=== PATIENT | female | born 1975 | race Caucasian/White ===

== ENCOUNTER 2020-02-11 17:47 | Emergency (ER) | payer OTHER, SELFPAY ==
[2020-02-11 18:07] VITALS: BP 165/82; PULSE 70; RESP 20; TEMP 36.8; O2SAT 97; BMI 25.0
--- NOTE | 2020-02-11 18:33 | HMH.EDUTC ---
[facility] Disposition Clinical Impression: Encounter for medication refill Disposition: Home, Self-Care Condition on Discharge: Good Instructions: Venlafaxine Additional Instructions: Make sure to call and make appointment with Estela Ngo [facility] You was given list of excepting Doctors call and try to get in for further treatment and medication refills Return if needed Straight to ER if any life threatening symptoms Prescriptions: Venlafaxine HCl [Venlafaxine HCl ER] 150 mg PO DAILY 30 Days #30 cap.er.24h Transmission Status: Pending to [id number] Referrals: Provider,Referral, MD [Primary Care Provider] - As needed Time of Disposition: 18:45 Medical Decision Making - Johnathon Inquiry Pt receiving controlled substance: No Johnathon was queried for this patient: No Vital Signs: 02/11/20 18:07 Temperature 98.2 F Temperature Source Oral Pulse Rate [Right Brachial] 70 Respiratory Rate 20 Blood Pressure [Right Arm] 165/82 H Blood Pressure Mean [Right Arm] 109 Blood Pressure Source [Right Arm] Automatic Cuff Blood Pressure Position [Right Arm] Sitting 02 Sat by Pulse Oximetry 97 Oxygen Delivery Method Room Air [facility] HPI - General Stated complaint: needs a refill on Rx Time Seen by Provider: 02/11/20 18:33 Mode of Arrival: Ambulatory Source of Information: Patient Limitations: No Limitations Description of Symptoms (Recalled from Triage Doc. by RN): PATIENT IS REQUESTING A REFILL ON HER EFFEXOR UNTIL SHE CAN ESTABLISH A PCP HEENT Symptoms (Recalled from RN notes): No Resp Symptoms (Recalled from RN notes): No Skin Symptoms (Recalled from RN notes): No MS Symptoms (Recalled from RN notes): No Functional Status (Recalled from RN notes): WNL - History of Present Illness Provider Complaint: Patient states that she is on Effexor States that she just ran out of her medication the first of February States that the Doctor she was seeing moved offices and no longer in [address] and now she cant see them anymore States that she came in today to see if she could get a refill on her Effexor until she can get in to see someone and establish a new PCP - Related Data Home Medications Medication Instructions Recorded Confirmed Buprenorphine HCl/Naloxone HCl 1 each SL BID 02/11/20 02/11/20 [Suboxone 8 mg-2 mg Sl Film] Buspirone HCl [Buspirone 15 mg 15 mg PO TID 02/11/20 02/11/20 Tablets] Venlafaxine HCl [Venlafaxine HCl 150 mg PO DAILY 02/11/20 02/11/20 ER] Previous Rx's Medication Instructions Recorded Venlafaxine HCl [Venlafaxine HCl 150 mg PO DAILY 30 Days #30 02/11/20 ER] cap.er.24h Allergies Allergy/AdvReac Type Severity Reaction Status Date / Time No Known Allergies Allergy Verified 02/11/20 18:10 - Worker's Comp Is this a Worker's Comp case?: No [facility] History - Hepatitis A Screen Drug use history?: No High risk sexual behaviors?: No History of sexually transmitted infection?: No Currently employed?: No Childcare worker?: No Do you have indoor plumbing?: Yes Do you have electricity?: Yes Attestation statement:: This patient has been screened for Hepatitis A risk factors. I have reviewed the patient's past medical history: Yes - Social History Smoking Status: Current every day smoker Tobacco Type: cigarettes # Packs/Day (cigarettes): 1 Alcohol Intake: never Occupational Status: other ROS Obtained: Yes All systems reviewed & no additional complaints, Yes Systems reviewed as appropriate & no additional complaints - Constitutional Constitutional: Reports system reviewed and no additional complaints, except as docu - Eyes Eyes: Reports system reviewed and no additional complaints, except as docu - ENT Ears, Nose, Mouth, and Throat: Reports system reviewed and no additional complaints, except as docu - Cardiovascular Cardiovascular: Reports system reviewed and no additional complaints, except as docu - Respiratory Respiratory: Yes system reviewed
[2020-02-11 18:50] VITALS: BP 165/82; PULSE 70; RESP 20; TEMP 36.8; O2SAT 97
== END 2020-02-11 18:52 | disposition home or self-care (01) ==
PROVIDERS: Emergency Provider Nurse Practitioner
DX: F41.8 Other specified anxiety disorders (principal); Z76.0 Encounter for issue of repeat prescription
CPT/HCPCS: 99201

== ENCOUNTER → 2021-02-22 11:32 | Outpatient (CLI) | payer OTHER, SELFPAY | DX: F11.20 Opioid dependence, uncomplicated (principal) ==

== ENCOUNTER → 2021-02-23 12:15 | Outpatient (CLI) | payer OTHER, SELFPAY ==
[2021-02-26 16:15] LABS: Buprenorphine 2 ng/mL (1-10); Norbuprenorphine 5 ng/mL (Not Estab.)
[2021-02-28 10:41] LABS: Methadone Negative (Cutoff=100)
[2021-03-01 08:45] LABS: Opiates Negative (Cutoff=100)
[2021-03-02 04:47] LABS: Cocaine + Metabolite Negative (Cutoff=150)
== END ==
PROVIDERS: Visit Provider Nurse Practitioner Family
DX: F11.20 Opioid dependence, uncomplicated (principal)
CPT/HCPCS: 36415; 80324; 80348; 80349; 80353; 80358; 80361; 80365; 83992; G0480

== ENCOUNTER → 2022-02-23 19:08 | Outpatient (CLI) | payer MEDICAID, SELFPAY ==
[2022-02-23 15:44] LABS: Basophils # 0.1 K/mm3 (0-0.2); Basophils % 1.2 % (0.1-2.0); Eosinophils # 0.2 K/mm3 (0.0-0.4); Eosinophils % 3.2 % (0.1-12.0); Hematocrit 44.5 % (37.0-47.0); Hemoglobin 14.8 g/dL (12.2-16.2); Lymphocytes % 27.8 % (10-50); Mean Corpuscular HGB Conc 33.4 g/dL (31.8-35.4); Mean Corpuscular Hemoglobin 30.3 pg (27.0-31.2); Mean Corpuscular Volume 90.8 fl (81-99); Mean Platelet Volume 11.5 fl (7.4-10.4); Monocytes # 0.6 K/mm3 (0.1-1.0); Monocytes % 8.1 % (1.7-9.3); Neutrophils # 4.2 K/mm3 (1.8-7.8); Neutrophils % 59.7 % (37.0-80.0); Platelet Count 204 K/mm3 (142-424); Red Cell Distribution Width 13.3 % (11.5-17.5); White Blood Count 7.1 K/mm3 (4.8-10.8)
[2022-02-23 15:54] LABS: Alanine Aminotransferase 15 U/L (12-78); Albumin Level 4.1 g/dl (3.5-5.0); Albumin/Globulin Ratio 1.6 (1.1-1.8); Alkaline Phosphatase 79 U/L (38-126); Anion Gap 6.5 mEq/L (5-15); Aspartate Amino Transferase 25 U/L (14-36); Bilirubin,Total 0.3 mg/dl (0.2-1.3); Blood Urea Nitrogen 11 mg/dl (7-17); Calcium 9.8 mg/dl (8.4-10.2); Carbon Dioxide 30 mmol/L (22.0-30.0); Chloride 105 mmol/L (98-107); Chol/HDL Ratio 3.4 (1-3.5); Cholesterol 193 mg/dl (140-200); Estimated Glomerular Filt Rate 60 ml/min (>60); GFR (African American) 73 ML/MIN (>60); Globulin 2.5 g/dL (1.3-3.2); Glucose 91 mg/dl (74-100); HDL Cholesterol 56 mg/dl (40-60); Potassium 4.5 mmoL/L (3.5-5.1); Sodium 137 mmol/L (136-145); Total Protein,Serum 6.6 g/dl (6.3-8.2); Triglycerides 122 mg/dl (30-150); VLDL Cholesterol 24 mg/dL (0-40)
[2022-02-23 16:05] LABS: Direct LDL Cholesterol 98.86 mg/dL (100-129)
[2022-02-23 16:25] LABS: Thyroid Stimulating Hormone 3.71 uIU/mL (0.465-4.68)
[2022-03-02 17:13] LABS: 1,25 Dihydroxy Vitamin D 86 pg/mL (.); 1,25-Dihydroxy, Vitamin D-2 <10 pg/mL (.); 1,25-Dihydroxy, Vitamin D-3 84 pg/mL (.)
== END ==
PROVIDERS: PCP Emergency Medicine; Visit Provider Emergency Medicine
DX: Z76.89 Persons encountering health services in other specified circumstances (principal)
CPT/HCPCS: 80053; 80061; 82652; 84439; 84443; 85025

== ENCOUNTER → 2022-03-10 06:13 | Outpatient (CLI) | payer MEDICAID, SELFPAY | PROVIDERS: PCP Nurse Practitioner Family; Visit Provider Nurse Practitioner Family | DX: N30.90 Cystitis, unspecified without hematuria (principal); B96.29 Other Escherichia coli [E. coli] as the cause of diseases classified elsewhere | CPT/HCPCS: 87086; 87088; 87186 ==

== ENCOUNTER → 2022-03-11 10:22 | Outpatient (CLI) | payer MEDICAID, SELFPAY ==
--- NOTE | 2022-03-11 10:22 | MM_ITS ---
PROCEDURE INFORMATION: Exam: MG Bilateral Screening 3D Mammography Exam date and time: 03/11/2022 10:14 AM Age: 46 years old Clinical indication: Screening examination TECHNIQUE: Imaging protocol: Bilateral Screening tomosynthesis and 2D mammography including computer-aided detection (CAD) when performed. COMPARISON: No relevant prior studies available. Baseline FINDINGS: MAMMOGRAPHY: Breast composition: There are scattered areas of fibroglandular density. Mass: 0.7 cm mass in the middle third the right central breast slightly inferior and slightly medial to the nipple line Architectural distortion: None. Calcifications: No suspicious calcifications. Asymmetric density: None. Skin thickening: None. Axillary adenopathy: None. IMPRESSION: Patient to be recalled for right breast ultrasound for further evaluation of a right breast mass. ASSESSMENT: BI-RADS Category 0: Incomplete- Need Additional Imaging Evaluation and/or Prior Mammograms for Comparison
== END ==
PROVIDERS: PCP Emergency Medicine; Visit Provider Emergency Medicine
DX: Z12.31 Encounter for screening mammogram for malignant neoplasm of breast (principal)
CPT/HCPCS: 77063; 77067

== ENCOUNTER → 2022-03-29 13:52 | Outpatient (CLI) | payer MEDICAID, SELFPAY ==
--- NOTE | 2022-03-29 13:55 | US_ITS ---
PROCEDURE INFORMATION: Exam: US Right Breast, Complete Exam date and time: 03/29/2022 2:09 PM Age: 46 years old Clinical indication: Recall on the basis of screening mammogram 03/11/2022 for sonographic evaluation of 0.7 cm mass in the middle 3rd of the right central breast. TECHNIQUE: Imaging protocol: Complete ultrasound of all four quadrants of the Right breast and the retroareolar regions, including ultrasound of the axilla when performed. COMPARISON: MG MM DIG SCREENING MAMM BI W/CAD 03/11/2022 10:14 AM FINDINGS: Breast: Right sonography, all 4 quadrants, retroareolar and axilla. Scattered subcentimeter cysts and complicated cysts, at 12 o'clock 5 cm from the nipple measuring 0.4 x by 0.4 x 0.1 cm, at 12 o'clock 3 cm from the nipple measuring 0.5 x 0.3 x 0.2 cm, at 6 o'clock 4 cm from the nipple measuring 0.4 x 0.4 x 0.2 cm, at 8 o'clock 3 cm from the nipple measuring 0.7 by 0.3 x 0.2 cm, at 10 o'clock 4 cm from the nipple measuring 1.1 x 0.3 cm - which may be a dilated duct, and at 11 o'clock 3 cm from the nipple measuring 0.4 x 0.3 x 0.4 cm. Either the findings at 12 o'clock for example may correlate to the mammographic mass. No suspicious cystic and no solid mass demonstrated. Sonographically unremarkable right axillary lymph node. IMPRESSION: Probably benign cystic changes, suggest six-month follow-up right diagnostic mammogram and targeted right breast ultrasound at 12, 8, 10, and 11 o'clock, unless otherwise clinically indicated. ASSESSMENT: BI-RADS Category 3: Probably benign
== END ==
PROVIDERS: PCP Nurse Practitioner Family; Visit Provider Emergency Medicine
DX: N63.10 Unspecified lump in the right breast, unspecified quadrant (principal)
CPT/HCPCS: 76641

== ENCOUNTER → 2022-05-05 12:08 | Outpatient (CLI) | payer MEDICAID, SELFPAY | PROVIDERS: PCP Emergency Medicine; Visit Provider Surgery | DX: Z01.812 Encounter for preprocedural laboratory examination (principal); Z20.822 Contact with and (suspected) exposure to COVID-19; Z12.11 Encounter for screening for malignant neoplasm of colon | CPT/HCPCS: C9803; U0003; U0005 ==

== ENCOUNTER 2022-05-06 10:20 | Day surgery (SDC) | payer MEDICAID, SELFPAY ==
[2022-05-04 14:24] VITALS: BMI 24.8
[2022-05-06 10:59] VITALS: BP 117/58; PULSE 60; RESP 18; TEMP 36.5; O2SAT 94
[2022-05-06 11:15] LABS: Urine Pregnancy, HCG Qual. Negative (Negative)
[2022-05-06 11:45] VITALS: O2SAT 94
--- NOTE | 2022-05-06 11:45 | EXP.ANES.CKL ---
[facility] Medical History History of anxiety History of substance abuse History of urethral narrowing Hypertension Surgical History History of carpal tunnel release of both wrists History of colonoscopy History of tubal ligation Family History Other Family history of cancer Social History Smoking Status: Current every day smoker tobacco type: cigarettes packs per day: 1 alcohol intake: never substance use type: former substance user current occupational status: employed and other Travel in the last 8 weeks: None caffeine: Yes [facility] Anesthesia Checklist Patient Identification Patient Identification: Arm Band Structural Data Admitted From: Home Planned Operative Procedure/s: colonoscopy Consent for Planned Operative Procedure(s) Verified: Yes Verified Documents: Surgical Consent and History and Physical NPO Status Verified Time NPO: 00:00 Additional verifications Anesthesia Reactions: No Airway Assessment C-Spine Mobility Assessed: Yes TMJ Mobility Assessed: Yes Dentition: Good Dentition Neurological Assessment Level of Consciousness: Awake and Alert Anesthesia Plan Anesthesia Risk discussed: Yes Anesthesia Plan: Verified ASA Class: II Anesthesia Type: MAC
[2022-05-06 12:25] VITALS: BP 107/66; PULSE 85; RESP 14; TEMP 36.6; O2SAT 98
--- NOTE | 2022-05-06 12:25 | HMH.SCOPE ---
Procedure: Date: 05/06/22 Patient Date of :: 1975 Procedure Performed:: Total colonoscopy with biopsy and polypectomy Indications:: 46-year-old female with family history of colon cancer and her grandmother in her 60s referred by Dr. Cotto for screening colonoscopy at age 46. Patient does state that she had undergone a colonoscopy at age 18 for evaluation of eating disorder . Performing Provider:: Jose Wilhelm MD Referring Provider:: Dimitris Cotto Sedation:: MAC sedation Procedure:: Patient history was obtained and appropriate physical examination was performed. Informed consent was obtained after explaining the benefits, alternatives, and risks of the procedure including, but not limited to, bleeding, perforation, missed lesions, and adverse reaction to anesthesia medications. Patient was informed of post-sedation precautions. The patient desired to proceed. Patient was transported to endoscopy procedure room. Patient was connected to monitoring devices. Patient was positioned in lateral decubitus position. Digital anorectal exam was performed. Variable stiffness Olympus colonoscope was inserted and advanced under direct visualization to the cecum. Adequacy of the colonic preparation was noted. The colonoscope was advanced a short distance into the ileocecal valve. The colonoscope was then slowly withdrawn while carefully examining the color, texture, anatomy, and integrity of the mucosoa circumferentially. Within the rectum retroflexion was performed. Colonoscope was then withdrawn. 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
[2022-05-06 12:35] VITALS: BP 114/68; PULSE 78; RESP 16; O2SAT 98
[2022-05-06 12:45] VITALS: BP 110/64; PULSE 64; RESP 16; O2SAT 98
[2022-05-06 12:55] VITALS: BP 118/77; PULSE 64; RESP 16; TEMP 36.6; O2SAT 99
== END 2022-05-06 12:55 | disposition home or self-care (01) ==
PROVIDERS: PCP Emergency Medicine; Visit Provider Surgery
PROC: 0DJD8ZZ Inspection of Lower Intestinal Tract, Via Natural or Artificial Opening Endoscopic (ICD-10-PCS; CPT 45380; principal; 2022-05-06 11:30)
DX: Z12.11 Encounter for screening for malignant neoplasm of colon (principal); F17.210 Nicotine dependence, cigarettes, uncomplicated; K63.5 Polyp of colon; Z79.899 Other long term (current) drug therapy
CPT/HCPCS: 45380; 81025

== ENCOUNTER 2023-08-23 10:10 | Outpatient (CLI) | payer OTHER, SELFPAY ==
[2023-08-23 10:28] LABS: Basophils # 0.1 K/mm3 (0-0.2); Basophils % 1.2 % (0.1-2.0); Eosinophils # 0.3 K/mm3 (0.0-0.4); Eosinophils % 3.7 % (0.1-12.0); Hematocrit 43.4 % (37.0-47.0); Hemoglobin 14.3 g/dL (12.2-16.2); Lymphocytes # 3.2 K/mm3 (0.7-4.5); Lymphocytes % 40.7 % (10-50); Mean Corpuscular Hemoglobin 31.6 pg (27.0-31.2); Mean Corpuscular Volume 95.9 fl (81-99); Mean Platelet Volume 10.1 fl (7.4-10.4); Monocytes # 0.7 K/mm3 (0.1-1.0); Monocytes % 9.1 % (1.7-9.3); Neutrophils # 3.5 K/mm3 (1.8-7.8); Neutrophils % 45.3 % (37.0-80.0); Platelet Count 178 K/mm3 (142-424); Red Blood Count 4.53 M/mm3 (4.20-5.40); White Blood Count 7.8 K/mm3 (4.8-10.8)
[2023-08-23 12:04] LABS: Chloride 103 mmol/L (98-107); Sodium 141 mmol/L (136-145)
[2023-08-23 12:06] LABS: Alanine Aminotransferase 19 U/L (12-78); Aspartate Amino Transferase 25 U/L (14-36); Blood Urea Nitrogen 14 mg/dl (7-17); Estimated Glomerular Filt Rate 60 ml/min (>60); GFR (African American) 73 ML/MIN (>60)
[2023-08-23 12:07] LABS: Albumin Level 4.1 g/dl (3.5-5.0); Albumin/Globulin Ratio 1.7 (1.1-1.8); Alkaline Phosphatase 94 U/L (38-126); Bilirubin,Total 0.4 mg/dl (0.2-1.3); Calcium 9.7 mg/dl (8.4-10.2); Carbon Dioxide 33 mmol/L (22.0-30.0); Cholesterol 180 mg/dl (140-200); Globulin 2.4 g/dL (1.3-3.2); Glucose 76 mg/dl (74-100); HDL Cholesterol 61 mg/dl (40-60); Total Protein,Serum 6.5 g/dl (6.3-8.2); Triglycerides 88 mg/dl (30-150); VLDL Cholesterol 18 mg/dL (0-40)
[2023-08-23 12:20] LABS: Direct LDL Cholesterol 93.36 mg/dL (100-129)
[2023-08-23 12:39] LABS: Thyroid Stimulating Hormone 4.07 uIU/mL (0.465-4.68)
[2023-08-24 08:54] LABS: FSH 57.6 mIU/mL (.)
== END 2023-08-23 23:59 ==
PROVIDERS: PCP Nurse Practitioner Family; Visit Provider Nurse Practitioner Family
DX: N95.1 Menopausal and female climacteric states (principal); E55.9 Vitamin D deficiency, unspecified; Z68.26 Body mass index [BMI] 26.0-26.9, adult
CPT/HCPCS: 36415; 80053; 80061; 82306; 83001; 84146; 84443; 85025

== ENCOUNTER 2023-10-23 13:32 | Outpatient (CLI) | payer OTHER, SELFPAY ==
--- NOTE | 2023-10-23 13:35 | MM_ITS ---
PROCEDURE INFORMATION: Exam: MG Bilateral Screening 3D Mammography Exam date and time: 10/23/2023 1:21 PM Age: 47 years old Clinical indication: Screening examination TECHNIQUE: Imaging protocol: Bilateral Screening tomosynthesis and 2D mammography including computer-aided detection (CAD) when performed. COMPARISON: 1. MG MM DIG SCREENING MAMM BI W/CAD 03/11/2022 10:14 AM 2. US BREAST RT COMPLETE 03/29/2022 2:09 PM FINDINGS: MAMMOGRAPHY: Breast composition: The breast tissue is composed of scattered areas of fibroglandular density. Mass: None. Architectural distortion: None. Calcifications: No suspicious calcifications. Asymmetric density: None. Skin thickening: None. Axillary adenopathy: None. IMPRESSION: 1. No mammographic evidence of malignancy. Annual screening is recommended unless otherwise clinically indicated. 2. Follow-up right breast ultrasound is recommended to ensure stability of probable benign fibrocystic change seen on sonogram dated 03/29/2022 if the patient has not already done so ASSESSMENT: BI-RADS Category 1: Negative
== END 2023-10-23 23:59 ==
LOC: RAD 13:33
PROVIDERS: PCP Nurse Practitioner Family; Visit Provider Nurse Practitioner Obstetrics & Gynecology
DX: Z12.31 Encounter for screening mammogram for malignant neoplasm of breast (principal)
CPT/HCPCS: 77063; 77067

== ENCOUNTER 2024-09-10 09:11 | Outpatient (CLI) | payer OTHER, SELFPAY ==
[2024-09-10 18:14] LABS: Basophils # 0.1 K/mm3 (0-0.2); Basophils % 1.1 % (0.1-2.0); Eosinophils # 0.3 K/mm3 (0.0-0.4); Eosinophils % 3.8 % (0.1-12.0); Hematocrit 40.9 % (37.0-47.0); Hemoglobin 13.5 g/dL (12.2-16.2); Lymphocytes # 2.6 K/mm3 (0.7-4.5); Lymphocytes % 36.9 % (10-50); Mean Corpuscular Hemoglobin 29.9 pg (27.0-31.2); Mean Corpuscular Volume 90.7 fl (81-99); Mean Platelet Volume 11.8 fl (7.4-10.4); Monocytes # 0.6 K/mm3 (0.1-1.0); Monocytes % 8.6 % (1.7-9.3); Neutrophils # 3.5 K/mm3 (1.8-7.8); Neutrophils % 49.3 % (37.0-80.0); Platelet Count 238 K/mm3 (142-424); Red Blood Count 4.51 M/mm3 (4.20-5.40); Red Cell Distribution Width 12.9 % (11.5-17.5); White Blood Count 7.1 K/mm3 (4.8-10.8)
[2024-09-10 18:43] LABS: Alanine Aminotransferase 15 U/L (12-78); Albumin Level 4.1 g/dl (3.5-5.0); Albumin/Globulin Ratio 2.1 (1.1-1.8); Alkaline Phosphatase 87 U/L (38-126); Aspartate Amino Transferase 23 U/L (14-36); Blood Urea Nitrogen 8 mg/dl (7-17); Calcium 9.8 mg/dl (8.4-10.2); Carbon Dioxide 27 mmol/L (22.0-30.0); Chloride 106 mmol/L (98-107); Chol/HDL Ratio 3.3 (1-3.5); Cholesterol 202 mg/dl (140-200); Estimated Glomerular Filt Rate 60 ml/min (>60); GFR (African American) 72 ML/MIN (>60); Glucose 80 mg/dl (74-100); HDL Cholesterol 61 mg/dl (40-60); Sodium 139 mmol/L (136-145); Total Protein,Serum 6.1 g/dl (6.3-8.2); Triglycerides 141 mg/dl (30-150); VLDL Cholesterol 28 mg/dL (0-40)
[2024-09-10 18:53] LABS: Bilirubin,Total 0.1 mg/dl (0.2-1.3)
[2024-09-10 18:54] LABS: Direct LDL Cholesterol 98.44 mg/dL (100-129)
[2024-09-10 19:02] LABS: 25-OH Vitamin D, Total 23.7 ng/mL (30-100)
[2024-09-10 19:08] LABS: Anion Gap 10.4 mEq/L (5-15); Potassium 4.4 mmoL/L (3.5-5.1)
[2024-09-10 19:15] LABS: Thyroid Stimulating Hormone 3.05 uIU/mL (0.465-4.68)
== END 2024-09-10 23:59 | disposition home or self-care (01) ==
LOC: LAB.DROPOF 09-11 09:11
PROVIDERS: PCP Nurse Practitioner Family; Visit Provider Nurse Practitioner Family
DX: F32.A Depression, unspecified (principal); I10 Essential (primary) hypertension; Z72.0 Tobacco use
CPT/HCPCS: 80053; 80061; 82306; 84443; 85025

== ENCOUNTER 2025-02-05 13:37 | Outpatient (CLI) | payer OTHER, SELFPAY ==
[2025-02-05 16:11] LABS: Hepatitis C Ab Qual. W/ RFX NEGATIVE (Negative)
[2025-02-06 08:49] LABS: Hepatitis B Surface Antigen Negative (Negative)
== END 2025-02-05 23:59 | disposition home or self-care (01) ==
LOC: LAB 13:38
PROVIDERS: PCP Nurse Practitioner Family; Visit Provider Obstetrics & Gynecology
DX: Z11.59 Encounter for screening for other viral diseases (principal)
CPT/HCPCS: 36415; 86803; 87340; 87389